=== PATIENT | male | born 1940 | race Caucasian/White ===

== ENCOUNTER → 2020-07-30 | Outpatient (CLI) | payer MEDICARE, SELFPAY ==
--- NOTE | 2020-07-30 | IMM_PTH ---
PATIENT: AMANDA MELVIN LOC: [facility] U#:[id number] AGE/SX: 80/M ROOM: RE07/30/[address]: Dr. Levy Deleon MD : 1940 BED: DIS: 07/30/2020 SPEC #: [id number] RECD: 08/01/20 12:53 STATUS: HARVINDER REQ #: [id number] ELMER: 07/30/20 00:[address]: Levy Deleon DEPT: IMMUNOHISTOCHEMISTRY RECD BY: Bella Paredes ENTERED: 08/01/20 12:54 SP TYPE: IMMUNO OTHR DR: Dr. Gerard Ambriz MD Tissues: F - PROSTATE LEFT Procedures: P40 (add) 34BE12 (initial) PHYSICIAN & INSTITUTION [place] [id number] SPECIMEN INFORMATION: Tissue Source: F - Left prostate, base, core biopsy Clinical Info: Elevated PSA Specimen Number: [id number] CPT code: 17269, 17364 METHODOLOGY: Deparaffinized sections of prefer/formalin-fixed tissue or PAP/DQ stained slides are incubated with monoclonal/polyclonal antibodies/oligonucleotide probes. Localization is made via biotin free immunoperoxidase method. Appropriate controls are performed and reacted as expected. Results on target cell population are indicated in the following table: RESULTS: ANTIBODY / CLONE RESULT Block F P40 (BC28) positive 34BE12 (34BE12) positive These tests were developed and their performance characteristics determined by [facility]. They may not have been cleared or approved by the [place]. Food and Drug Administration. The FDA has determined that such clearance or approval is not necessary. The above immunohistochemical/dualISH markers are ordered and reviewed by the Pathologist. INTERPRETATION: F. Left prostate, base, core biopsy: Consistent with focal high-grade prostatic intraepithelial neoplasia (HGPIN). AM:jordan 08/02/20
--- NOTE | 2020-07-30 11:20 | PROSBIL_PTH ---
PATIENT: AMANDA MELVIN LOC: [facility] U#:[id number] AGE/SX: 80/M ROOM: RE07/30/[address]: Dr. Levy Deleon MD : 1940 BED: DIS: 07/30/2020 SPEC #: [id number] RECD: 07/30/20 17:03 STATUS: HARVINDER REAlejandro #: [id number] ELMER: 07/30/20 11:[address]: Levy Deleon DEPT: SURGICAL PATHOLOGY RECD BY: Amina Banda ENTERED: 07/31/20 10:06 SP TYPE: PROST BX ELID[place] DR: Dr. Gerard Ambriz MD Tissues: A - PROSTATE RIGHT B - PROSTATE RIGHT C - PROSTATE RIGHT D - PROSTATE LEFT E - PROSTATE LEFT F - PROSTATE LEFT Procedures: PROSTATE BX HEADER OPERATION: Prostate biopsy PRE-OP DIAGNOSIS: Elevated PSA TISSUE SUBMITTED: A - Right apex, B - Right mid, C - Right base, D - Left apex, E - Left mid, F - Left base MICROSCOPIC DIAGNOSIS A. Right prostate, apex, core biopsy: Focal high-grade prostatic intraepithelial neoplasia (HGPIN). B. Right prostate, mid, core biopsy: Focal high-grade prostatic intraepithelial neoplasia (HGPIN). C. Right prostate, base, core biopsy: Focal high-grade prostatic intraepithelial neoplasia (HGPIN). Mild chronic inflammation. D. Left prostate, apex, core biopsy: Adenocarcinoma. [place] grade: 6 (3+3) Cores involved: 1 out of 1 core Tissue involved: 55% Greatest tumor length: 4 mm E. Left prostate, mid, core biopsy: Focal high-grade prostatic intraepithelial neoplasia (HGPIN). F. Left prostate, base, core biopsy: Focal high-grade prostatic intraepithelial neoplasia (HGPIN). See comment. AM:jordan 08/01/20 COMMENT F. Immunohistochemistry ([id number]) supports the above diagnosis. MICROSCOPIC DESCRIPTION Slides are reviewed. GROSS DESCRIPTION A - Received is one container designated prostate, right apex. The specimen consists of one elongated fragment of light elise-white soft tissue measuring 1 cm in length and 0.1 cm in diameter. The specimen is totally submitted in one cassette. B - Received is one container designated prostate, right mid. The specimen consists of two elongated fragments of light elise-white soft tissue each measuring 1.5 cm in length and 0.1 cm in diameter. The specimen is totally submitted in one cassette. C - Received is one container designated prostate, right base. The specimen consists of two elongated fragments of light elise-white soft tissue each measuring 1.5 cm in length and 0.1 cm in diameter. The specimen is totally submitted in one cassette. D - Received is one container designated prostate, left apex. The specimen consists of one elongated fragment of light elise-white soft tissue measuring 1 cm in length and 0.1 cm in diameter. The specimen is totally submitted in one cassette. E - Received is one container designated prostate, left mid. The specimen consists of two elongated fragments of light elise-white soft tissue each measuring 1 cm in length and 0.1 cm in diameter. The specimen is totally submitted in one cassette. F - Received is one container designated prostate, left base. The specimen consists of two elongated fragments of light elise-white soft tissue each measuring 1 cm in length and 0.1 cm in diameter. The specimen is totally submitted in one cassette. / AM:rg 07/31/20 TC:0 CPT: G0146
== END | disposition home or self-care (01) ==
LOC: LABSPEC 07-31 09:12
PROVIDERS: PCP Family Medicine; Referring Provider Urology; Visit Provider Urology
DX: R97.20 Elevated prostate specific antigen [PSA] (principal)
CPT/HCPCS: 88305; 88341; 88342; G0416